=== PATIENT | male | born 1950 | race Caucasian/White ===

== ENCOUNTER 2021-01-28 05:13 | Observation (INO) | payer BC ==
[~2021-01-28] VITALS: Ht 172.7 cm; Wt 83.0 kg
--- NOTE | 2021-01-28 05:52 | NUR ---
PT Had a biopsy at [facility] on 01/19. Postive for carcinoma. Pt states hematuria after procedure and pain with urination but nothing like yesterday after golfing. Pain has increased significantly since yesterday especially with urination. Pt also states that had blood clots come out yesterday but not this moring only hematuria and urgency to urinate and only able very little. Bladder scan show 202ml in bladder. Pt had urge incontinence for last 2 years.
--- NOTE | 2021-01-28 06:57 | NUR ---
Report given to Kirstin LONG.
[2021-01-28] MEDS ORDERED: MORPHINE SULFATE 4 MG/ML, 1ML ONE ×4 (07:36→12:26)
[2021-01-28] MEDS ORDERED: ONDANSETRON 2MG/ML, 2ML ONE (07:36)
[2021-01-28] MEDS: MORPHINE SULFATE 4 MG/ML, 1ML IVPush PRN ×4 (07:44→12:28)
[2021-01-28] MEDS ORDERED: ONDANSETRON 2MG/ML, 2ML IVPush ONE (08:00)
[2021-01-28 09:03] LABS: MICROSCOPIC INDICATED
[2021-01-28] MEDS ORDERED: LIDOCAINE 2%,20 ML JEL.PF.APP MM ONE ×2 (09:42→10:00)
[2021-01-28 09:55] LABS: BASOPHILS % (AUTO) 1 % (0-1); EOSINOPHILS % (AUTO) 1 % (1-7); LYMPHOCYTES % (AUTO) 30 % (22-44); MEAN CORPUSCULAR HEMOGLOBIN 34.2 pg (27.5-34.5); MEAN CORPUSCULAR HGB CONC 34.3 g/dL (33.2-36.2); MEAN PLATELET VOLUME 9.1 fL (7.4-10.4); MONOCYTES % (AUTO) 10 % (2-9); NEUTROPHILS % (AUTO) 58 % (42-75); PLATELET COUNT 85 x10^3/uL (130-400); RED BLOOD COUNT 4.23 x10^6/uL (4.38-5.82); RED CELL DISTRIBUTION WIDTH 12.9 % (9.4-14.8)
[2021-01-28 09:57] LABS: MD NO
[2021-01-28 10:02] LABS: ALBUMIN 3.6 g/dL (3.4-5.0); ANION GAP 7 mmol/L (5-15); CALCIUM 8.8 mg/dL (8.5-10.1); CHLORIDE 108 mmol/L (98-107); CREATININE 0.81 mg/dL (0.7-1.3)
--- NOTE | 2021-01-28 11:30 | NUR ---
18 FR URINARY CATH WITH 3 WAY DISCONTINUED AND [address] WITH BLADDER IRRIGATION PLACED.
[2021-01-28] MEDS ORDERED: MORPHINE SULFATE 4 MG/ML, 1ML IVPush PRN (13:00)
[2021-01-28] MEDS ORDERED: D5%-0.45% NACL 1,000 ML IV ONE (13:00)
[2021-01-28] MEDS ORDERED: ONDANSETRON 2MG/ML, 2ML IVPush PRN ×2 (13:00→15:00)
[2021-01-28] MEDS ORDERED: SODIUM CHLORIDE FLUSH 10ML SYR IVF PRN (13:00)
[2021-01-28] MEDS ORDERED: CHLORHEXIDINE 15 ML UDC ONE (13:47)
[2021-01-28] MEDS ORDERED: CHLORHEXIDINE 15 ML UDC PO ONE (14:00)
[2021-01-28] MEDS ORDERED: MIDAZOLAM 1 MG/ML, 2ML ONE (14:30)
[2021-01-28] MEDS ORDERED: FENTANYL PF 250 MCG/5ML ONE (14:30)
[2021-01-28] MEDS ORDERED: hydrALAzine 20 MG/ML, 1ML IV PRN (15:00)
[2021-01-28] MEDS ORDERED: ACETAMINOPHEN 325 MG TABLET PO PRN ×2 (15:00→18:00)
[2021-01-28] MEDS ORDERED: MEPERIDINE/PF 25MG/0.5ML IVPush PRN (15:00)
[2021-01-28] MEDS ORDERED: LABETALOL 5MG/ML, 20ML IV PRN (15:00)
[2021-01-28] MEDS ORDERED: OXYcodone 5 MG/5 ML ORAL.SOL UDC PO PRN (15:00)
[2021-01-28] MEDS ORDERED: HYDROmorphone 1 MG/ML, 1ML INJ IVPush PRN (15:00)
[2021-01-28] MEDS ORDERED: morphine SULFATE 10 MG/ML, 1ML IVPush PRN (15:00)
[2021-01-28] MEDS ORDERED: GLYCOPYRROLATE 0.2MG/1ML, 5ML ONE (15:08)
[2021-01-28] MEDS ORDERED: CEFAZOLIN 1,000 MG ONE (15:08)
[2021-01-28] MEDS ORDERED: ROCURONIUM 10 MG/ML,10ML ONE (15:08)
[2021-01-28] MEDS ORDERED: PROPOFOL 10 MG/ML, 20ML ONE (15:08)
[2021-01-28] MEDS ORDERED: NEOSTIGMINE 1 MG/ML, 10ML ONE (15:08)
[2021-01-28] MEDS ORDERED: FENTANYL PF 100 MCG/2ML ONE (16:22)
[2021-01-28] MEDS ORDERED: HYDROmorphone 1 MG/ML, 1ML INJ ONE (16:23)
[2021-01-28] MEDS ORDERED: OXYcodone 5 MG/5 ML ORAL.SOL UDC ONE (16:23)
[2021-01-28] MEDS: FENTANYL PF 100 MCG/2ML IV PRN ×2 (16:25→16:35)
[2021-01-28] MEDS ORDERED: PLEASE ENTER HEIGHT AND WEIGHT MC SCH (17:30)
[2021-01-28] MEDS ORDERED: morphine SULFATE 10 MG/ML, 1ML IV PRN (18:00)
[2021-01-28] MEDS ORDERED: OPIUM/BELLADONNA SUPP.RECT 16.2-30 MG PR PRN (18:00)
[2021-01-28] MEDS ORDERED: HYDROcodone/APAP 5/325 TABLET PO PRN (18:00)
[2021-01-28] MEDS ORDERED: OXYcodone/APAP 5/325MG TABLET PO PRN (18:00)
[2021-01-28 19:02] VITALS: BP 123/68
[2021-01-29 00:10] VITALS: BP 95/62
[2021-01-29] MEDS: LACTATED RINGERS 1,000 ML IV SCH ×2 (03:02→10:00)
[2021-01-29 04:23] VITALS: BP 104/66
[2021-01-29 07:02] VITALS: BP 108/69
== END 2021-01-29 14:28 | disposition home or self-care (01) ==
LOC: ED 06:20 → EDIP 17:33 → INTOOBSV 17:33 → 4NE 17:35 → DCLOUNGE 01-29 14:25
PROVIDERS: ADMIT Urology; ATTEND Urology
DX: N40.1 Benign prostatic hyperplasia with lower urinary tract symptoms (principal); Z20.822 Contact with and (suspected) exposure to COVID-19; R33.8 Other retention of urine; R31.0 Gross hematuria; D09.9 Carcinoma in situ, unspecified; N32.89 Other specified disorders of bladder; E78.5 Hyperlipidemia, unspecified; E03.9 Hypothyroidism, unspecified; Z87.891 Personal history of nicotine dependence; Z86.008 Personal history of in-situ neoplasm of other site; Z79.899 Other long term (current) drug therapy
CPT/HCPCS: 36415; 52001; 80048; 81001; 82040; 85025; 87086; 87426; 88305; 93005; 96361; 96374; 96375; 96376; G0378; J0690; J2250; J2270; J2405; J2704; J2710; J3010; J7120

== ENCOUNTER → 2021-05-06 | Outpatient (CLI) | payer BC ==
[~2021-05-06] MED LIST: Statin PO
[2021-05-06 15:21] LABS: BASOPHILS % (AUTO) 1 % (0-1); EOSINOPHILS % (AUTO) 2 % (1-7); LYMPHOCYTES % (AUTO) 39 % (22-44); MEAN CORPUSCULAR HEMOGLOBIN 33.3 pg (27.5-34.5); MEAN CORPUSCULAR HGB CONC 33.9 g/dL (33.2-36.2); MEAN PLATELET VOLUME 8.5 fL (7.4-10.4); MONOCYTES % (AUTO) 14 % (2-9); NEUTROPHILS % (AUTO) 45 % (42-75); RED BLOOD COUNT 4.36 x10^6/uL (4.38-5.82); RED CELL DISTRIBUTION WIDTH 13.1 % (9.4-14.8)
[2021-05-06 15:29] LABS: INTERNATIONAL NORMALIZED RATIO 0.99 (0.93-1.1); PROTHROMBIN TIME 10.6 Seconds (9.6-11.5)
[2021-05-06 15:33] LABS: ANION GAP 3 mmol/L (5-15); CALCIUM 9.1 mg/dL (8.5-10.1); CHLORIDE 106 mmol/L (98-107)
[2021-05-06 15:34] LABS: CREATININE 1.05 mg/dL (0.7-1.3)
[2021-05-06 16:21] LABS: PLATELET COUNT 104 x10^3/uL (130-400)
[2021-05-06 17:36] LABS: MICROSCOPIC AUTO
== END | disposition home or self-care (01) ==
LOC: STAR 13:53
PROVIDERS: ATTEND Urology
DX: Z01.818 Encounter for other preprocedural examination (principal); C67.9 Malignant neoplasm of bladder, unspecified; R94.31 Abnormal electrocardiogram [ECG] [EKG]; I44.4 Left anterior fascicular block
CPT/HCPCS: 36415; 80048; 81001; 85025; 85610; 87086; 93005

== ENCOUNTER 2021-05-27 13:27 | Day surgery (SDC) | payer BC, MEDICARE ==
[~2021-05-27] VITALS: Ht 172.7 cm; Wt 79.6 kg
[2021-05-27 13:59] VITALS: BP 108/66
[2021-05-27] MEDS ORDERED: LACTATED RINGERS 1,000 ML IV SCH (14:00)
[2021-05-27] MEDS ORDERED: CHLORHEXIDINE 15 ML UDC PO ONE (14:00)
[2021-05-27] MEDS ORDERED: CHLORHEXIDINE 15 ML UDC ONE (14:01)
[2021-05-27] MEDS ORDERED: MIDAZOLAM 1 MG/ML, 2ML ONE (15:07)
[2021-05-27] MEDS ORDERED: GEMCITABINE HCL 1,000 MG in SODIUM CHLORIDE 0.9% 23.7 ML IS ONE (15:30)
[2021-05-27] MEDS ORDERED: ONDANSETRON 2MG/ML, 2ML ONE (15:45)
[2021-05-27] MEDS ORDERED: FENTANYL PF 100 MCG/2ML ONE ×2 (15:45→16:19)
[2021-05-27] MEDS ORDERED: ROCURONIUM 10MG/ML,5ML ONE (15:45)
[2021-05-27] MEDS ORDERED: CEFAZOLIN 1,000 MG ONE ×2 (15:45)
[2021-05-27] MEDS ORDERED: PROPOFOL 10 MG/ML, 20ML ONE (15:45)
[2021-05-27] MEDS ORDERED: SUGAMMADEX 200 MG/2 ML IVPush ONE (15:50)
[2021-05-27] MEDS ORDERED: HYDROmorphone 1 MG/ML, 1ML INJ IVPush PRN (16:30)
[2021-05-27] MEDS ORDERED: FENTANYL PF 100 MCG/2ML IV PRN (16:30)
[2021-05-27] MEDS ORDERED: LABETALOL 5MG/ML, 20ML IV PRN (16:30)
[2021-05-27] MEDS ORDERED: DIAZEPAM 5 MG/ML, 2ML IVPush PRN (16:30)
[2021-05-27] MEDS ORDERED: ONDANSETRON 2MG/ML, 2ML IVPush PRN (16:30)
[2021-05-27] MEDS ORDERED: hydrALAzine 20 MG/ML, 1ML IV PRN (16:30)
[2021-05-27] MEDS ORDERED: ACETAMINOPHEN 325 MG TABLET PO PRN (16:30)
[2021-05-27] MEDS ORDERED: OXYcodone 5 MG/5 ML ORAL.SOL UDC PO PRN (16:30)
[2021-05-27] MEDS ORDERED: MEPERIDINE/PF 25MG/0.5ML IVPush PRN (16:30)
== END 2021-05-27 18:40 | disposition home or self-care (01) ==
LOC: OR 13:27
PROVIDERS: ATTEND Urology
DX: N32.89 Other specified disorders of bladder (principal); N30.20 Other chronic cystitis without hematuria; Z85.51 Personal history of malignant neoplasm of bladder; Z88.2 Allergy status to sulfonamides; Z88.8 Allergy status to other drugs, medicaments and biological substances
CPT/HCPCS: 51720; 52240; 88307; J0690; J2250; J2405; J2704; J3010; J7120; J9201